=== PATIENT | female | born 1940 | race Two or more races ===

== ENCOUNTER 2021-03-10 11:40 | Inpatient (IN) | payer MEDICARE, OTHER ==
[~2021-03-10] VITALS: Ht 160 cm; Wt 98.1 kg
[2021-03-10 12:59] LABS: Hemoglobin 13.8 g/dL (12.2-16.2); Mean Corpuscular Hemoglobin 28.2 pg (28.0-32.0); Mean Corpuscular Volume 88.1 fL (80.0-100.0); Red Blood Cells 4.88 10^6/uL (4.0-5.20); Red Cell Distribution Width 18.1 % (11.8-14.3); White Blood Cell 12.4 10^3/uL (4.4-10.8)
[2021-03-10 13:08] LABS: Basophils % (manual) 0 (0.0-2.0); Blast Cells 0; Metamyelocytes % 0; Promyelocytes % 0; Reactive Lymphocytes 0
[2021-03-10 13:29] LABS: Chloride 109 mmol/L (98-107); Potassium 4.3 mmol/L (3.5-5.1); Sodium 139 mmol/L (136-145)
[2021-03-10 13:30] LABS: Anion Gap 8 (5-15); Carbon Dioxide 22 mmol/L (21-32); Glucose 161 mg/dL (74-106)
[2021-03-10 13:31] LABS: Alanine Aminotransferase 20 U/L (13-56); Alkaline Phosphatase 80 U/L (45-117); Aspartate Aminotransferase 23 U/L (15-37); BUN/Creatinine Ratio 18.5; Bilirubin, Total 0.4 mg/dL (0.2-1.0); Blood Urea Nitrogen 27 mg/dL (7-18); Calcium 9.5 mg/dL (8.5-10.1); GFR African American 44 mL/min; GFR Non-African American 36 mL/min; Total Protein 7.7 g/dL (6.4-8.2)
[2021-03-10 13:32] LABS: Albumin 3.2 g/dL (3.4-5.0)
[2021-03-10 13:41] LABS: Band Neutrophils % (manual) 1; Eosinophils % (manual) 1 (0-7); Lymphocytes % (manual) 15 (10.0-50.0); Monocytes % (manual) 3 (0-12); Myelocytes % 1
[2021-03-10] MEDS ORDERED: MORPHINE SULFATE INJECTION 2 MG/ML SYRG IV ONE (14:00)
[2021-03-10] MEDS ORDERED: ONDANSETRON HCL 4 MG/2 ML VIAL IV ONE (14:00)
[2021-03-10] MEDS ORDERED: MULT-1018 PO (15:53)
[2021-03-10] MEDS ORDERED: AMIO200T33 PO (15:53)
[2021-03-10] MEDS ORDERED: GLIM4TAB42 PO (15:53)
[2021-03-10] MEDS ORDERED: LOSA100T25 PO (15:53)
[2021-03-10] MEDS ORDERED: PANT1INJ3 IV (15:53)
[2021-03-10] MEDS ORDERED: CYAN50008 PO (15:53)
[2021-03-10] MEDS ORDERED: METF-370 PO (15:53)
[2021-03-10] MEDS ORDERED: LINA5TAB PO (15:53)
[2021-03-10] MEDS ORDERED: METO25TA5 PO (15:53)
[2021-03-10] MEDS ORDERED: DOCUSATE CALCIUM 240 MG CAP PO PRN ×2 (16:30→23:00)
[2021-03-10] MEDS ORDERED: DEXTROSE (50%) 50ML SYRG IV PRN ×2 (16:30→23:00)
[2021-03-10] MEDS ORDERED: hydrALAZINE HCL 20 MG/ML VL IV PRN ×2 (16:30→23:00)
[2021-03-10] MEDS ORDERED: LORazepam 0.5 MG TAB PO PRN ×2 (16:30→23:00)
[2021-03-10] MEDS ORDERED: ONDANSETRON HCL 4 MG/2 ML VIAL IV PRN ×2 (16:30→23:00)
[2021-03-10] MEDS ORDERED: ACETAMINOPHEN 500 MG TAB PO PRN ×2 (16:30→23:00)
[2021-03-10] MEDS ORDERED: MORPHINE SULFATE INJECTION 2 MG/ML SYRG IV PRN ×3 (16:30→23:00)
[2021-03-10 17:35] LABS: Urine Bacteria FEW /hpf (None Seen); Urine Blood Negative /uL (Negative); Urine Specific Gravity 1.015 (1.001-1.035); Urine WBC 124 /hpf (0 - 5); Urine WBC Clumps PRESENT /hpf (None Seen)
[2021-03-10] MEDS ORDERED: NITROGLYCERIN 0.4 MG SL TAB SL PRN ×2 (17:45→23:00)
[2021-03-10] MEDS ORDERED: ACCU-CHEK COMFORT CURVE STRIP VI SCH (20:00)
[2021-03-10] MEDS ORDERED: InsuLIN REG 1unit/0.01ml Soln (100units/ml) SC SCH (20:00)
[2021-03-10 22:00] VITALS: BP 147/68
[2021-03-10] MEDS ORDERED: INSULIN LANTUS (GLARGINE) 1 /0.01ml (100units/ml) SC SCH (22:00)
[2021-03-10] MEDS: MORPHINE SULFATE INJECTION 2 MG/ML SYRG IV PRN (22:58)
[2021-03-10 23:38] VITALS: BP 147/68
[2021-03-11] MEDS ORDERED: PANT40TA2 PO (00:07)
[2021-03-11] MEDS: ACCU-CHEK COMFORT CURVE STRIP VI SCH ×6 (00:39→22:00)
[2021-03-11] MEDS: InsuLIN REG 1unit/0.01ml Soln (100units/ml) SC SCH ×5 (00:39→22:00)
[2021-03-11 05:00] VITALS: BP 181/69
[2021-03-11] MEDS: MORPHINE SULFATE INJECTION 2 MG/ML SYRG IV PRN (06:06)
[2021-03-11 09:00] VITALS: BP 129/64
[2021-03-11] MEDS: ENOXAPARIN SOD 40 MG/0.4 ML SYRINGE SC SCH (09:47)
[2021-03-11] MEDS ORDERED: AMIODARONE HCL 200 MG TAB PO SCH ×2 (10:00)
[2021-03-11] MEDS ORDERED: ENOXAPARIN SOD 40 MG/0.4 ML SYRINGE SC SCH (10:00)
[2021-03-11] MEDS ORDERED: PANTOPRAZOLE 40 MG TAB PO SCH ×2 (10:00)
[2021-03-11] MEDS ORDERED: cefTRIAXone 1GM/50ML D5W 50 ML IV ONE (12:00)
[2021-03-11] MEDS: CYCLOBENZAPRINE HCL 10 MG TAB PO PRN (12:05)
[2021-03-11 13:06] VITALS: BP 97/41
[2021-03-11 17:04] VITALS: BP 110/47
[2021-03-11 17:14] LABS: INR 1.1 (0.9-1.15)
[2021-03-11] MEDS ORDERED: DEXTROSE (50%) 50ML SYRG IV PRN (17:30)
[2021-03-11] MEDS: INSULIN LANTUS (GLARGINE) 1 /0.01ml (100units/ml) SC SCH (22:00)
[2021-03-11 22:07] VITALS: BP 134/59
[2021-03-11] MEDS: ATORVASTATIN 20 MG TAB PO SCH (22:51)
[2021-03-12 05:20] VITALS: BP 148/71
[2021-03-12] MEDS: GLIMEPIRIDE 2 MG TAB PO SCH (06:37)
[2021-03-12] MEDS: InsuLIN REG 1unit/0.01ml Soln (100units/ml) SC SCH ×4 (06:43→21:48)
[2021-03-12] MEDS: ACCU-CHEK COMFORT CURVE STRIP VI SCH ×4 (07:00→21:46)
[2021-03-12] MEDS: cefTRIAXone 1GM/50ML D5W 50 ML IV SCH (08:18)
[2021-03-12] MEDS: MULTIPLE VITAMINS W/ MINERALS TAB PO SCH (08:19)
[2021-03-12] MEDS: CYANOCOBALAMIN 500 MCG TAB PO SCH (08:19)
[2021-03-12] MEDS: ENOXAPARIN SOD 40 MG/0.4 ML SYRINGE SC SCH (08:20)
[2021-03-12] MEDS: PANTOPRAZOLE 40 MG TAB PO SCH (08:20)
[2021-03-12] MEDS: HCTZ 25 MG TAB PO SCH (08:22)
[2021-03-12] MEDS: LOSARTAN POTASSIUM 25 MG TAB PO SCH (08:22)
[2021-03-12] MEDS: MORPHINE SULFATE INJECTION 2 MG/ML SYRG IV PRN ×2 (08:23→18:34)
[2021-03-12 09:00] VITALS: BP 149/66
[2021-03-12] MEDS: CYCLOBENZAPRINE HCL 10 MG TAB PO PRN (12:07)
[2021-03-12 13:00] VITALS: BP 143/61
[2021-03-12 13:16] LABS: Basophils # (auto) 0.1 10 ^3/uL (0-0.2); Basophils % (auto) 0.8 % (0.0-2.0); Eosinophils # (auto) 0.1 10 ^3/uL (0-0.8); Eosinophils % (auto) 0.6 % (0.0-7.0); Hematocrit 42.2 % (36.0-46.0); Hemoglobin 13.6 g/dL (12.2-16.2); Lymphocytes # (auto) 0.9 10 ^3/uL (0.4-5.4); Lymphocytes % (auto) 6.5 % (10.0-50.0); Mean Corpuscular Hemoglobin 27.9 pg (28.0-32.0); Mean Corpuscular Hgb Conc. 32.2 g/dL (32.0-36.0); Mean Corpuscular Volume 86.7 fL (80.0-100.0); Monocytes # (auto) 1.1 10 ^3/uL (0-1.3); Monocytes % (auto) 8.1 % (0.0-12.0); Neutrophils # (auto) 11.2 10 ^3/uL (1.6-8.6); Red Blood Cells 4.86 10^6/uL (4.0-5.20); Red Cell Distribution Width 18.3 % (11.8-14.3); White Blood Cell 13.4 10^3/uL (4.4-10.8)
[2021-03-12 13:34] LABS: Albumin 3.1 g/dL (3.4-5.0); Calcium 8.9 mg/dL (8.5-10.1); Potassium 4.3 mmol/L (3.5-5.1)
[2021-03-12 13:39] LABS: Bilirubin, Total 0.6 mg/dL (0.2-1.0); Total Protein 7.7 g/dL (6.4-8.2)
[2021-03-12 16:06] VITALS: BP 104/48
[2021-03-12] MEDS: ATORVASTATIN 20 MG TAB PO SCH (21:46)
[2021-03-12] MEDS: INSULIN LANTUS (GLARGINE) 1 /0.01ml (100units/ml) SC SCH (21:48)
[2021-03-12 22:00] VITALS: BP 116/44
[2021-03-13] MEDS: InsuLIN REG 1unit/0.01ml Soln (100units/ml) SC SCH ×4 (05:37→22:00)
[2021-03-13] MEDS: ACCU-CHEK COMFORT CURVE STRIP VI SCH ×4 (05:37→22:00)
[2021-03-13] MEDS: GLIMEPIRIDE 2 MG TAB PO SCH (05:39)
[2021-03-13 05:51] LABS: Hematocrit 41.8 % (36.0-46.0); Hemoglobin 13.8 g/dL (12.2-16.2); Mean Corpuscular Hemoglobin 28.4 pg (28.0-32.0); Mean Corpuscular Volume 86.2 fL (80.0-100.0); Red Blood Cells 4.85 10^6/uL (4.0-5.20); Red Cell Distribution Width 17.6 % (11.8-14.3); White Blood Cell 15.1 10^3/uL (4.4-10.8)
[2021-03-13 06:05] LABS: Basophils % (manual) 0 (0.0-2.0); Blast Cells 0; Metamyelocytes % 0; Promyelocytes % 0; Reactive Lymphocytes 0
[2021-03-13 06:18] LABS: Potassium 4.8 mmol/L (3.5-5.1)
[2021-03-13 06:26] LABS: BUN/Creatinine Ratio 23.3; Bilirubin, Total 0.7 mg/dL (0.2-1.0)
[2021-03-13 07:42] LABS: Band Neutrophils % (manual) 3; Eosinophils % (manual) 2 (0-7); Lymphocytes % (manual) 6 (10.0-50.0); Monocytes % (manual) 4 (0-12); Myelocytes % 2
[2021-03-13 09:00] VITALS: BP 132/51
[2021-03-13] MEDS: MULTIPLE VITAMINS W/ MINERALS TAB PO SCH (10:00)
[2021-03-13] MEDS: ENOXAPARIN SOD 30 MG/0.3 ML SYRINGE SC SCH (10:00)
[2021-03-13] MEDS: CYANOCOBALAMIN 500 MCG TAB PO SCH (10:00)
[2021-03-13] MEDS: cefTRIAXone 1GM/50ML D5W 50 ML IV SCH (10:24)
[2021-03-13] MEDS: HCTZ 25 MG TAB PO SCH (10:25)
[2021-03-13] MEDS: PANTOPRAZOLE 40 MG TAB PO SCH (10:25)
[2021-03-13] MEDS: LOSARTAN POTASSIUM 25 MG TAB PO SCH (10:27)
[2021-03-13] MEDS: MORPHINE SULFATE INJECTION 2 MG/ML SYRG IV PRN (12:20)
[2021-03-13] MEDS ORDERED: FUROSEMIDE 20 MG/2 ML VIAL IV ONE (13:30)
[2021-03-13] MEDS ORDERED: VANCOMYCIN HCL 1000 MG VL ONE (13:42)
[2021-03-13] MEDS ORDERED: fentaNYL CITRATE 100 MCG/2 ML VL ONE (13:43)
[2021-03-13] MEDS ORDERED: MIDAZOLAM HCL 2MG/2ML 2ml VIAL (1mg/ml) ONE (13:44)
[2021-03-13] MEDS ORDERED: IODIXANOL 320MG/ML 100ML BTL IV ONE (13:44)
[2021-03-13] MEDS ORDERED: VANCOMYCIN 1GM/250ML 250 ML IV ONE (13:44)
[2021-03-13] MEDS ORDERED: LIDOCAINE 2%HCL (LOCAL ANESTH.) INJ 20ML MDV ONE (13:46)
[2021-03-13] MEDS ORDERED: diphenhdrAMINE HCL 50 MG/1 ML VL ONE (13:52)
[2021-03-13] MEDS ORDERED: FUROSEMIDE 20 MG/2 ML VIAL ONE (14:15)
[2021-03-13 20:00] VITALS: BP 132/51
[2021-03-13] MEDS: ATORVASTATIN 20 MG TAB PO SCH (21:47)
[2021-03-13] MEDS: VANCOMYCIN 1GM/250ML 250 ML IV SCH (21:48)
[2021-03-13] MEDS: INSULIN LANTUS (GLARGINE) 1 /0.01ml (100units/ml) SC SCH (22:00)
[2021-03-14] MEDS: InsuLIN REG 1unit/0.01ml Soln (100units/ml) SC SCH ×4 (06:18→22:20)
[2021-03-14] MEDS: GLIMEPIRIDE 2 MG TAB PO SCH (06:28)
[2021-03-14] MEDS: LEVOTHYROXINE SODIUM 25 MCG TAB PO SCH (06:28)
[2021-03-14] MEDS: ACCU-CHEK COMFORT CURVE STRIP VI SCH ×4 (06:38→22:05)
[2021-03-14 07:06] LABS: Anion Gap 6 (5-15); BUN/Creatinine Ratio 30.7; Blood Urea Nitrogen 51 mg/dL (7-18); Calcium 8.7 mg/dL (8.5-10.1); Carbon Dioxide 21 mmol/L (21-32); Chloride 103 mmol/L (98-107); GFR African American 38 mL/min; GFR Non-African American 31 mL/min; Glucose 138 mg/dL (74-106); Magnesium 2.2 mg/dL (1.6-2.6); Sodium 130 mmol/L (136-145)
[2021-03-14 07:13] LABS: Hematocrit 40.8 % (36.0-46.0); Hemoglobin 13.6 g/dL (12.2-16.2); Mean Corpuscular Hemoglobin 28.7 pg (28.0-32.0); Mean Corpuscular Hgb Conc. 33.2 g/dL (32.0-36.0); Mean Corpuscular Volume 86.5 fL (80.0-100.0); Red Blood Cells 4.72 10^6/uL (4.0-5.20); Red Cell Distribution Width 18.3 % (11.8-14.3); White Blood Cell 22.7 10^3/uL (4.4-10.8)
[2021-03-14 07:28] LABS: Basophils % (manual) 0 (0.0-2.0); Blast Cells 0; Promyelocytes % 0; Reactive Lymphocytes 0
[2021-03-14 08:23] LABS: Band Neutrophils % (manual) 3; Eosinophils % (manual) 1 (0-7); Lymphocytes % (manual) 6 (10.0-50.0); Metamyelocytes % 1; Monocytes % (manual) 3 (0-12); Myelocytes % 1
[2021-03-14 09:00] VITALS: BP 132/58
[2021-03-14 09:16] LABS: Potassium 5.9 mmol/L (3.5-5.1)
[2021-03-14] MEDS ORDERED: ALBUTEROL SULF 2.5 MG/0.5ML(0.5%) NEB SOLN NEB ONE (09:30)
[2021-03-14] MEDS ORDERED: SODIUM ZIRCONIUM CYCL 10 GM PAK PO ONE (09:30)
[2021-03-14] MEDS: MULTIPLE VITAMINS W/ MINERALS TAB PO SCH (10:33)
[2021-03-14] MEDS: PANTOPRAZOLE 40 MG TAB PO SCH (10:33)
[2021-03-14] MEDS: CYANOCOBALAMIN 500 MCG TAB PO SCH (10:33)
[2021-03-14] MEDS: cefTRIAXone 1GM/50ML D5W 50 ML IV SCH (10:36)
[2021-03-14] MEDS: VANCOMYCIN 1GM/250ML 250 ML IV SCH (10:39)
[2021-03-14] MEDS ORDERED: SODIUM BICARBONATE 8.4% INJ 50ML SYRINGE IV ONE (12:00)
[2021-03-14] MEDS ORDERED: FUROSEMIDE 20 MG/2 ML VIAL IV ONE (12:00)
[2021-03-14] MEDS ORDERED: SODIUM CHLORIDE 0.9% 1,000 ML IV ONE (12:00)
[2021-03-14 13:00] VITALS: BP 129/57
[2021-03-14] MEDS: ENOXAPARIN SOD 30 MG/0.3 ML SYRINGE SC SCH (13:26)
[2021-03-14 15:24] LABS: Basophils # (auto) 0 10 ^3/uL (0-0.2); Basophils % (auto) 0.2 % (0.0-2.0); Eosinophils # (auto) 0.1 10 ^3/uL (0-0.8); Eosinophils % (auto) 0.5 % (0.0-7.0); Hematocrit 39.7 % (36.0-46.0); Hemoglobin 12.9 g/dL (12.2-16.2); Lymphocytes # (auto) 0.6 10 ^3/uL (0.4-5.4); Lymphocytes % (auto) 4.2 % (10.0-50.0); Mean Corpuscular Hemoglobin 28.1 pg (28.0-32.0); Mean Corpuscular Hgb Conc. 32.5 g/dL (32.0-36.0); Mean Corpuscular Volume 86.5 fL (80.0-100.0); Monocytes # (auto) 1.3 10 ^3/uL (0-1.3); Monocytes % (auto) 9.4 % (0.0-12.0); Neutrophils % (auto) 85.7 % (37.0-80.0); Nucleated Red Blood Cells % 0.1 %; Red Blood Cells 4.59 10^6/uL (4.0-5.20); Red Cell Distribution Width 17.6 % (11.8-14.3)
[2021-03-14 15:42] LABS: BUN/Creatinine Ratio 29.3; Calcium 8.6 mg/dL (8.5-10.1); Potassium 3.8 mmol/L (3.5-5.1)
[2021-03-14 17:00] VITALS: BP 132/60
[2021-03-14 22:00] VITALS: BP 134/54
[2021-03-14] MEDS ORDERED: SODIUM ZIRCONIUM CYCL 10 GM PAK PO SCH (22:00)
[2021-03-14] MEDS: ATORVASTATIN 20 MG TAB PO SCH (22:05)
[2021-03-14] MEDS: INSULIN LANTUS (GLARGINE) 1 /0.01ml (100units/ml) SC SCH (22:20)
[2021-03-15] MEDS: MORPHINE SULFATE INJECTION 2 MG/ML SYRG IV PRN (02:45)
[2021-03-15 05:00] VITALS: BP 128/56
[2021-03-15] MEDS: ACCU-CHEK COMFORT CURVE STRIP VI SCH ×4 (06:23→22:06)
[2021-03-15] MEDS: GLIMEPIRIDE 2 MG TAB PO SCH (06:35)
[2021-03-15] MEDS: InsuLIN REG 1unit/0.01ml Soln (100units/ml) SC SCH ×4 (06:35→22:05)
[2021-03-15] MEDS: LEVOTHYROXINE SODIUM 25 MCG TAB PO SCH (06:36)
[2021-03-15 08:58] VITALS: BP 140/58
[2021-03-15] MEDS: cefTRIAXone 1GM/50ML D5W 50 ML IV SCH (10:50)
[2021-03-15] MEDS: ENOXAPARIN SOD 30 MG/0.3 ML SYRINGE SC SCH (10:50)
[2021-03-15] MEDS: MULTIPLE VITAMINS W/ MINERALS TAB PO SCH (10:51)
[2021-03-15] MEDS: PANTOPRAZOLE 40 MG TAB PO SCH (10:51)
[2021-03-15] MEDS: CYANOCOBALAMIN 500 MCG TAB PO SCH (11:12)
[2021-03-15 13:47] LABS: BUN/Creatinine Ratio 35.9; Potassium 3.6 mmol/L (3.5-5.1)
[2021-03-15 17:17] VITALS: BP 140/64
[2021-03-15 21:34] VITALS: BP 132/65
[2021-03-15] MEDS: ATORVASTATIN 20 MG TAB PO SCH (21:58)
[2021-03-15] MEDS: INSULIN LANTUS (GLARGINE) 1 /0.01ml (100units/ml) SC SCH (22:06)
[2021-03-16 05:11] VITALS: BP 130/59
[2021-03-16] MEDS: GLIMEPIRIDE 2 MG TAB PO SCH (06:21)
[2021-03-16] MEDS: InsuLIN REG 1unit/0.01ml Soln (100units/ml) SC SCH ×4 (06:21→21:47)
[2021-03-16] MEDS: ACCU-CHEK COMFORT CURVE STRIP VI SCH ×4 (06:21→21:47)
[2021-03-16] MEDS: LEVOTHYROXINE SODIUM 25 MCG TAB PO SCH (06:22)
[2021-03-16 09:00] VITALS: BP 138/72
[2021-03-16] MEDS: MULTIPLE VITAMINS W/ MINERALS TAB PO SCH (10:32)
[2021-03-16] MEDS: cefTRIAXone 1GM/50ML D5W 50 ML IV SCH (10:33)
[2021-03-16] MEDS: PANTOPRAZOLE 40 MG TAB PO SCH (10:33)
[2021-03-16] MEDS: ENOXAPARIN SOD 30 MG/0.3 ML SYRINGE SC SCH (10:33)
[2021-03-16] MEDS: CYANOCOBALAMIN 500 MCG TAB PO SCH (10:33)
[2021-03-16] MEDS ORDERED: LEVOTHYROXINE SODIUM 100 MCG/5 ML INJ IV ONE (11:30)
[2021-03-16 13:00] VITALS: BP 141/64
[2021-03-16 17:00] VITALS: BP 122/60
[2021-03-16] MEDS: ATORVASTATIN 20 MG TAB PO SCH (21:46)
[2021-03-16] MEDS: INSULIN LANTUS (GLARGINE) 1 /0.01ml (100units/ml) SC SCH (21:47)
[2021-03-16 22:00] VITALS: BP 137/65
[2021-03-17] VITALS (12 sets, daily range): BP systolic 102–146; BP diastolic 56–79
[2021-03-17] MEDS: GLIMEPIRIDE 2 MG TAB PO SCH (06:38)
[2021-03-17] MEDS: InsuLIN REG 1unit/0.01ml Soln (100units/ml) SC SCH ×4 (06:39→22:13)
[2021-03-17] MEDS: ACCU-CHEK COMFORT CURVE STRIP VI SCH ×4 (06:39→22:13)
[2021-03-17 07:03] LABS: Hematocrit 42.2 % (36.0-46.0); Hemoglobin 13.8 g/dL (12.2-16.2); Mean Corpuscular Hemoglobin 28.8 pg (28.0-32.0); Mean Corpuscular Hgb Conc. 32.6 g/dL (32.0-36.0); Mean Corpuscular Volume 88.4 fL (80.0-100.0); Red Blood Cells 4.77 10^6/uL (4.0-5.20); Red Cell Distribution Width 17.4 % (11.8-14.3); White Blood Cell 10.5 10^3/uL (4.4-10.8)
[2021-03-17 07:14] LABS: Basophils % (manual) 0 (0.0-2.0); Blast Cells 0; Metamyelocytes % 0; Promyelocytes % 0; Reactive Lymphocytes 0
[2021-03-17 07:20] LABS: Potassium 3.6 mmol/L (3.5-5.1)
[2021-03-17 07:32] LABS: Albumin 2.1 g/dL (3.4-5.0); BUN/Creatinine Ratio 40.4; Bilirubin, Total 0.4 mg/dL (0.2-1.0); Calcium 8.9 mg/dL (8.5-10.1); Magnesium 2.6 mg/dL (1.6-2.6); Total Protein 6.6 g/dL (6.4-8.2)
[2021-03-17 07:55] LABS: INR 1.11 (0.9-1.15); Partial Thromboplastin Time 27.3 sec (23.6-33.0)
[2021-03-17 08:05] LABS: Band Neutrophils % (manual) 1; Eosinophils % (manual) 1 (0-7); Lymphocytes % (manual) 7 (10.0-50.0); Monocytes % (manual) 4 (0-12); Myelocytes % 1
[2021-03-17] MEDS: cefTRIAXone 1GM/50ML D5W 50 ML IV SCH (09:28)
[2021-03-17] MEDS: ENOXAPARIN SOD 30 MG/0.3 ML SYRINGE SC SCH (10:00)
[2021-03-17] MEDS: MULTIPLE VITAMINS W/ MINERALS TAB PO SCH (10:00)
[2021-03-17] MEDS: CYANOCOBALAMIN 500 MCG TAB PO SCH (10:00)
[2021-03-17] MEDS: PANTOPRAZOLE 40 MG TAB PO SCH (10:00)
[2021-03-17] MEDS ORDERED: TRANEXAMIC ACID 20 ML ONE (11:01)
[2021-03-17] MEDS ORDERED: BUPIVACAINE 0.5% P/F INJ 10 ML VIAL ONE (11:51)
[2021-03-17] MEDS ORDERED: PROPOFOL 10 MG/ML 20 ML IV ONE (11:55)
[2021-03-17] MEDS ORDERED: GLYCOPYRROLATE 0.2 MG/ML 1ML VIAL ONE (11:55)
[2021-03-17] MEDS ORDERED: MIDAZOLAM HCL 2MG/2ML 2ml VIAL (1mg/ml) ONE (11:55)
[2021-03-17] MEDS ORDERED: KETAMINE HCL 10 ML ONE (11:55)
[2021-03-17] MEDS ORDERED: fentaNYL CITRATE 100 MCG/2 ML VL ONE (11:55)
[2021-03-17] MEDS ORDERED: ONDANSETRON HCL 4 MG/2 ML VIAL ONE (11:55)
[2021-03-17] MEDS ORDERED: MORPHINE SULF PF 2 MG/2 ML SYRG ONE (11:55)
[2021-03-17] MEDS ORDERED: ePHEDrine SULFATE 50 MG/ML AMP ONE (11:55)
[2021-03-17] MEDS ORDERED: ceFAZolin 1GM/50ML 100 ML IV ONE (11:56)
[2021-03-17] MEDS ORDERED: VANCOMYCIN HCL 1000 MG VL ONE (12:01)
[2021-03-17] MEDS ORDERED: EPINEPHrine HCL 1 MG/1 ML AMP ONE (13:07)
[2021-03-17] MEDS ORDERED: HYDROcodone-ACET 10/325MG TAB PO PRN (14:45)
[2021-03-17] MEDS: LACTATED RINGER'S 1,000 ML IV SCH (14:45)
[2021-03-17] MEDS ORDERED: DexAMETHasone SOD PHOS 10MG/1ML VIAL INJ IV PRN (15:15)
[2021-03-17] MEDS ORDERED: ONDANSETRON HCL 4 MG/2 ML VIAL IV PRN ×3 (15:15→15:30)
[2021-03-17] MEDS ORDERED: diphenhdrAMINE HCL 50 MG/1 ML VL IV PRN (15:15)
[2021-03-17] MEDS ORDERED: ACCU-CHEK COMFORT CURVE STRIP VI ONE (15:15)
[2021-03-17] MEDS ORDERED: NALOXONE HCL 0.4 MG/ML VIAL IV PRN (15:15)
[2021-03-17] MEDS: KETOROLAC TROMETH 30 MG/ML 1ML VIAL IV SCH (18:00)
[2021-03-17] MEDS: ceFAZolin 1GM/50ML 50 ML IV SCH (21:00)
[2021-03-17] MEDS: ATORVASTATIN 20 MG TAB PO SCH (22:12)
[2021-03-17] MEDS: INSULIN LANTUS (GLARGINE) 1 /0.01ml (100units/ml) SC SCH (22:13)
[2021-03-18] VITALS (20 sets, daily range): BP systolic 100–142; BP diastolic 37–79
[2021-03-18] MEDS: LACTATED RINGER'S 1,000 ML IV SCH ×3 (00:45→20:45)
[2021-03-18] MEDS: ceFAZolin 1GM/50ML 50 ML IV SCH (05:22)
[2021-03-18] MEDS: KETOROLAC TROMETH 30 MG/ML 1ML VIAL IV SCH ×4 (06:00→17:37)
[2021-03-18 06:16] LABS: Calcium 8.3 mg/dL (8.5-10.1); Potassium 3.8 mmol/L (3.5-5.1)
[2021-03-18 06:17] LABS: Basophils # (auto) 0 10 ^3/uL (0-0.2); Basophils % (auto) 0.2 % (0.0-2.0); Eosinophils # (auto) 0 10 ^3/uL (0-0.8); Eosinophils % (auto) 0.3 % (0.0-7.0); Hematocrit 35.7 % (36.0-46.0); Hemoglobin 11.7 g/dL (12.2-16.2); Lymphocytes # (auto) 0.9 10 ^3/uL (0.4-5.4); Lymphocytes % (auto) 6.5 % (10.0-50.0); Mean Corpuscular Hemoglobin 28.7 pg (28.0-32.0); Mean Corpuscular Hgb Conc. 32.8 g/dL (32.0-36.0); Mean Corpuscular Volume 87.7 fL (80.0-100.0); Monocytes # (auto) 1.3 10 ^3/uL (0-1.3); Monocytes % (auto) 9.6 % (0.0-12.0); Neutrophils # (auto) 11.3 10 ^3/uL (1.6-8.6); Neutrophils % (auto) 83.4 % (37.0-80.0); Red Blood Cells 4.07 10^6/uL (4.0-5.20); Red Cell Distribution Width 17.3 % (11.8-14.3); White Blood Cell 13.6 10^3/uL (4.4-10.8)
[2021-03-18 06:21] LABS: BUN/Creatinine Ratio 33.6
[2021-03-18] MEDS: InsuLIN REG 1unit/0.01ml Soln (100units/ml) SC SCH ×4 (06:58→22:54)
[2021-03-18] MEDS: GLIMEPIRIDE 2 MG TAB PO SCH (06:58)
[2021-03-18] MEDS: ACCU-CHEK COMFORT CURVE STRIP VI SCH ×4 (06:58→22:00)
[2021-03-18] MEDS: cefTRIAXone 1GM/50ML D5W 50 ML IV SCH (08:26)
[2021-03-18] MEDS: ENOXAPARIN SOD 40 MG/0.4 ML SYRINGE SC SCH (09:57)
[2021-03-18] MEDS: PANTOPRAZOLE 40 MG TAB PO SCH (09:57)
[2021-03-18] MEDS: CYANOCOBALAMIN 500 MCG TAB PO SCH (09:57)
[2021-03-18] MEDS: MULTIPLE VITAMINS W/ MINERALS TAB PO SCH (09:57)
[2021-03-18] MEDS: MORPHINE SULFATE INJECTION 2 MG/ML SYRG IV PRN (10:18)
[2021-03-18] MEDS: ATORVASTATIN 20 MG TAB PO SCH (22:53)
[2021-03-18] MEDS: INSULIN LANTUS (GLARGINE) 1 /0.01ml (100units/ml) SC SCH (22:54)
[2021-03-19] MEDS: KETOROLAC TROMETH 30 MG/ML 1ML VIAL IV SCH ×4 (00:28→18:10)
[2021-03-19 05:00] VITALS: BP 131/54
[2021-03-19] MEDS: ACCU-CHEK COMFORT CURVE STRIP VI SCH ×4 (06:34→21:58)
[2021-03-19] MEDS: InsuLIN REG 1unit/0.01ml Soln (100units/ml) SC SCH ×4 (06:34→21:58)
[2021-03-19] MEDS: LACTATED RINGER'S 1,000 ML IV SCH ×2 (06:35→16:36)
[2021-03-19] MEDS: GLIMEPIRIDE 2 MG TAB PO SCH (07:00)
[2021-03-19 08:55] VITALS: BP 118/64
[2021-03-19] MEDS: PANTOPRAZOLE 40 MG TAB PO SCH (09:28)
[2021-03-19] MEDS: MULTIPLE VITAMINS W/ MINERALS TAB PO SCH (09:28)
[2021-03-19] MEDS: cefTRIAXone 1GM/50ML D5W 50 ML IV SCH (09:28)
[2021-03-19] MEDS: ENOXAPARIN SOD 40 MG/0.4 ML SYRINGE SC SCH (09:29)
[2021-03-19] MEDS: CYANOCOBALAMIN 500 MCG TAB PO SCH (09:29)
[2021-03-19 12:56] VITALS: BP 116/79
[2021-03-19 17:00] VITALS: BP 115/76
[2021-03-19] MEDS: ATORVASTATIN 20 MG TAB PO SCH (21:58)
[2021-03-19] MEDS: INSULIN LANTUS (GLARGINE) 1 /0.01ml (100units/ml) SC SCH (21:59)
[2021-03-19 22:00] VITALS: BP 121/50
[2021-03-20] MEDS: KETOROLAC TROMETH 30 MG/ML 1ML VIAL IV SCH ×4 (00:15→18:38)
[2021-03-20] MEDS: LACTATED RINGER'S 1,000 ML IV SCH ×2 (02:45→12:45)
[2021-03-20 05:00] VITALS: BP 120/55
[2021-03-20] MEDS: InsuLIN REG 1unit/0.01ml Soln (100units/ml) SC SCH ×3 (06:18→18:39)
[2021-03-20] MEDS: GLIMEPIRIDE 2 MG TAB PO SCH (06:18)
[2021-03-20] MEDS: ACCU-CHEK COMFORT CURVE STRIP VI SCH ×3 (06:18→18:38)
[2021-03-20 09:00] VITALS: BP 106/53
[2021-03-20] MEDS: cefTRIAXone 1GM/50ML D5W 50 ML IV SCH (09:19)
[2021-03-20] MEDS: MULTIPLE VITAMINS W/ MINERALS TAB PO SCH (09:19)
[2021-03-20] MEDS: PANTOPRAZOLE 40 MG TAB PO SCH (09:20)
[2021-03-20] MEDS: CYANOCOBALAMIN 500 MCG TAB PO SCH (09:20)
[2021-03-20] MEDS: ENOXAPARIN SOD 40 MG/0.4 ML SYRINGE SC SCH (09:20)
[2021-03-20 13:00] VITALS: BP 111/46
[2021-03-20 17:00] VITALS: BP 99/43
[2021-03-20 19:00] VITALS: BP 99/43
== END 2021-03-20 20:51 | DRG 521 ==
LOC: EDBD 11:40 → ER 11:40 → TELE-CENTR 17:37 → ER 20:39 → TELE-WESTW 03-12 21:40
PROVIDERS: ADMIT Family Medicine; ATTEND Internal Medicine
PROC: 0JH606Z Insertion of Pacemaker, Dual Chamber into Chest Subcutaneous Tissue and Fascia, Open Approach (ICD-10-PCS; 2021-03-13)
PROC: 02H63JZ Insertion of Pacemaker Lead into Right Atrium, Percutaneous Approach (ICD-10-PCS; 2021-03-13)
PROC: 02HK3JZ Insertion of Pacemaker Lead into Right Ventricle, Percutaneous Approach (ICD-10-PCS; 2021-03-13)
PROC: 0SRS0J9 Replacement of Left Hip Joint, Femoral Surface with Synthetic Substitute, Cemented, Open Approach (ICD-10-PCS; principal; 2021-03-17 12:53)
DX: S72.002A Fracture of unspecified part of neck of left femur, initial encounter for closed fracture (principal); I50.43 Acute on chronic combined systolic (congestive) and diastolic (congestive) heart failure; I44.2 Atrioventricular block, complete; N39.0 Urinary tract infection, site not specified; I13.0 Hypertensive heart and chronic kidney disease with heart failure and stage 1 through stage 4 chronic kidney disease, or unspecified chronic kidney disease; N17.9 Acute kidney failure, unspecified; E11.65 Type 2 diabetes mellitus with hyperglycemia; N18.30 Chronic kidney disease, stage 3 unspecified; I25.10 Atherosclerotic heart disease of native coronary artery without angina pectoris; K21.9 Gastro-esophageal reflux disease without esophagitis; E87.5 Hyperkalemia; Z20.822 Contact with and (suspected) exposure to COVID-19; E03.9 Hypothyroidism, unspecified; E11.22 Type 2 diabetes mellitus with diabetic chronic kidney disease; Z53.9 Procedure and treatment not carried out, unspecified reason; Z96.619 Presence of unspecified artificial shoulder joint; Z96.649 Presence of unspecified artificial hip joint; W01.0XXA Fall on same level from slipping, tripping and stumbling without subsequent striking against object, initial encounter; Z96.651 Presence of right artificial knee joint; Z90.49 Acquired absence of other specified parts of digestive tract; Z86.73 Personal history of transient ischemic attack (TIA), and cerebral infarction without residual deficits; Y92.000 Kitchen of unspecified non-institutional (private) residence as the place of occurrence of the external cause; Z95.0 Presence of cardiac pacemaker; Z98.51 Tubal ligation status; Z91.81 History of falling; Y93.89 Activity, other specified; Y92.090 Kitchen in other non-institutional residence as the place of occurrence of the external cause; Y99.8 Other external cause status
CPT/HCPCS: 33208; 36415; 51702; 71045; 72170; 73502; 80048; 80053; 81001; 82306; 82962; 83036; 83735; 83880; 84439; 84443; 84484; 85007; 85025; 85027; 85610; 85730; 86850; 86900; 86901; 87086; 87088; 87186; 87426; 93005; 93306; 96374; 96375; 97110; 97116; 97163; 97530; 99152; 99153; A4565; C1785; G0378; J0171; J0690; J0696; J1815; J1885; J2250; J2405; J2704; J3490; Q9967